=== PATIENT | male | born 1980 | race Two or more races ===

== ENCOUNTER 2018-04-05 18:45 | Emergency (ER) | payer MEDICARE, OTHER ==
[~2018-04-05] VITALS: Ht 177.8 cm; Wt 95.3 kg
--- NOTE | 2018-04-05 18:55 | Emergency Room Report ---
History of Present Illness General Chief Complaint: Behavioral Complaint Source: Patient (Shantel Graves DO) Present Illness HPI Patient persist by paramedics Patient reports that he has been diagnosed with paranoid schizophrenia Has not been on any medications for that over the past month Denies any chest pain denies any shortness of breath Patient denies any active homicidal or suicidal thoughts Denies any vomiting or diarrhea patient reports that he was in a retirement house recently Denies any previous homicidal or suicidal attempts (Shantel Graves DO) Allergies: Coded Allergies: No Known Allergies (Unverified , 04/05/18) Patient History Past Medical History: see triage record Pertinent Family History: none Reviewed Nursing Documentation: PMH: Agreed; PSxH: Agreed (Shantel Graves DO) Nursing Documentation-PMH Past Medical History: No History, Except For History Of Psychiatric Problem: Yes - paranoid schizophrenia (Shantel Graves DO) Review of Systems All Other Systems: negative except mentioned in HPI (Shantel Graves DO) Physical Exam Vital Signs Date Time Temp Pulse Resp B/P (MAP) Pulse Ox O2 Delivery O2 Flow Rate FiO2 04/05/18 18:41 98.5 94 16 150/90 97 Room Air 98.4 Sp02 EP Interpretation: reviewed, normal General Appearance: well appearing, no apparent distress, other - Patient does have some pressured speech and appears anxious Head: normocephalic, atraumatic Eyes: bilateral eye PERRL, bilateral eye EOMI ENT: hearing grossly normal, normal pharynx, TMs + canals normal, uvula midline Neck: full range of motion, supple, no meningismus, no bony tend Respiratory: lungs clear, normal breath sounds, no rhonchi, no respiratory distress, no retraction, no accessory muscle use Cardiovascular #1: normal peripheral pulses, regular rate, rhythm, no edema, no gallop, no JVD, no murmur Gastrointestinal: normal bowel sounds, non tender, soft, no mass, no organomegaly, non-distended, no guarding, no hernia, no pulsatile mass, no rebound Musculoskeletal: normal inspection Neurologic: oriented x3, responsive, park attendant III-XII nml as tested, motor strength/ tone normal, sensory intact Psychiatric: anxious - Pressured speech, unorganized thought process at times Skin: warm/dry, palpation normal, other - Mildly disheveled Lymphatic: normal inspection, no adenopathy (Shantel Graves DO) Medical Decision Making Diagnostic Impression: Primary Impression: Amphetamine abuse ER Course Patient has examinations initiated for further medical clearance Does appear to have underlying psychiatric condition However appears to be appropriately functional, patient was provided with medication Having further medical clearance and reevaluation in the emergency room Patient does not meet active 5150 criteria however will benefit from evaluation if needed Labs Test 04/05/18 18:56 White Blood Count 9.9 K/UL (4.8-10.8) Red Blood Count 4.77 M/UL (4.70-6.10) Hemoglobin 15.5 G/DL (14.2-18.0) Hematocrit 44.1 % (42.0-52.0) Mean Corpuscular Volume 92 FL (80-99) Mean Corpuscular Hemoglobin 32.5 PG (27.0-31.0) Mean Corpuscular Hemoglobin Concent 35.2 G/DL (32.0-36.0) Red Cell Distribution Width 10.8 % (11.6-14.8) Platelet Count 302 K/UL (150-450) Mean Platelet Volume 6.9 FL (6.5-10.1) Neutrophils (%) (Auto) 56.0 % (45.0-75.0) Lymphocytes (%) (Auto) 32.2 % (20.0-45.0) Monocytes (%) (Auto) 8.9 % (1.0-10.0) Eosinophils (%) (Auto) 1.4 % (0.0-3.0) Basophils (%) (Auto) 1.4 % (0.0-2.0) Sodium Level 138 MMOL/L (136-145) Potassium Level 3.8 MMOL/L (3.5-5.1) Chloride Level 104 MMOL/L (98-107) Carbon Dioxide Level 26 MMOL/L (21-32) Anion Gap 8 mmol/L (5-15) Blood Urea Nitrogen 17 mg/dL (7-18) Creatinine 1.0 MG/DL (0.55-1.30) Estimat Glomerular Filtration Rate > 60 mL/min (>60) Glucose Level 112 MG/DL (74-106) Calcium Level 9.0 MG/DL (8.5-10.1) Total Bilirubin 0.4 MG/DL (0.2-1.0) Aspartate Amino Transf (AST/SGOT) 31 U/L (15-37) Alanine Aminotransferase (ALT/SGPT) 41 U/L (12-78) Alkaline Phosphatase 88 U/L (46-116) Total Protein 7.8 G/DL (6.4-8.2) Albumin 3.5 G/DL (3.4-5.0) Globulin 4.3 g/dL Albumin/Globulin Ratio 0.8 (1.0-2.7) Salicylates Level 1.9 ug/mL (2.8-20) Urine Opiates Screen Negative (NEGATIVE) Acetaminophen Level < 2 MCG/ML (10-30) Urine Barbiturates Screen Negative (NEGATIVE) Phencyclidine (PCP) Screen Negative (NEGATIVE) Urine Amphetamines Screen Positive (NEGATIVE) Urine Benzodiazepines Screen Negative (NEGATIVE) Urine Cocaine Screen Negative (NEGATIVE) Urine Marijuana (THC) Screen Negative (NEGATIVE) Serum Alcohol < 3 mg/dL (Shantel Graves DO) ER Course Was turned over to me by Dr. Mendiola. Please see Dr. Graves's note for full history and physical. This patient presented with bizarre behaviors. The patient stated to me that he would like to leave it. He was coming back from a smoke break in the parking lot and stated that he felt fine and requested to leave. He states he is going to go to his mom's house. He does not want any further psychiatric evaluation at this time. He states that he has been using drugs about why he was acting bizarrely. He denies suicidal or homicidal ideation. He was educated on the dangers of amphetamine abuse. The patient was clinically sober and able to make his own decisions at this time. The patient was given return precautions and follow-up instructions. Laboratory Tests Test 04/05/18 18:56 White Blood Count 9.9 K/UL (4.8-10.8) Red Blood Count 4.77 M/UL (4.70-6.10) Hemoglobin 15.5 G/DL (14.2-18.0) Hematocrit 44.1 % (42.0-52.0) Mean Corpuscular Volume 92 FL (80-99) Mean Corpuscular Hemoglobin 32.5 PG (27.0-31.0) H Mean Corpuscular Hemoglobin Concent 35.2 G/DL (32.0-36.0) Red Cell Distribution Width 10.8 % (11.6-14.8) L Platelet Count 302 K/UL (150-450) Mean Platelet Volume 6.9 FL (6.5-10.1) Neutrophils (%) (Auto) 56.0 % (45.0-75.0) Lymphocytes (%) (Auto) 32.2 % (20.0-45.0) Monocytes (%) (Auto) 8.9 % (1.0-10.0) Eosinophils (%) (Auto) 1.4 % (0.0-3.0) Basophils (%) (Auto) 1.4 % (0.0-2.0) Sodium Level 138 MMOL/L (136-145) Potassium Level 3.8 MMOL/L (3.5-5.1) Chloride Level 104 MMOL/L (98-107) Carbon Dioxide Level 26 MMOL/L (21-32) Anion Gap 8 mmol/L (5-15) Blood Urea Nitrogen 17 mg/dL (7-18) Creatinine 1.0 MG/DL (0.55-1.30) Estimate Glomerular Filtration Rate > 60 mL/min (>60) Glucose Level 112 MG/DL (74-106) H Calcium Level 9.0 MG/DL (8.5-10.1) Total Bilirubin 0.4 MG/DL (0.2-1.0) Aspartate Amino Transferase (AST) 31 U/L (15-37) Alanine Aminotransferase (ALT) 41 U/L (12-78) Alkaline Phosphatase 88 U/L (46-116) Total Protein 7.8 G/DL (6.4-8.2) Albumin 3.5 G/DL (3.4-5.0) Globulin 4.3 g/dL Albumin/Globulin Ratio 0.8 (1.0-2.7) L Salicylates Level 1.9 ug/mL (2.8-20) L Urine Opiates Screen Negative (NEGATIVE) Acetaminophen Level < 2 MCG/ML (10-30) L Urine Barbiturates Screen Negative (NEGATIVE) Phencyclidine (PCP) Screen Negative (NEGATIVE) Urine Amphetamines Screen Positive (NEGATIVE) H Urine Benzodiazepines Screen Negative (NEGATIVE) Urine Cocaine Screen Negative (NEGATIVE) Urine Marijuana (THC) Screen Negative (NEGATIVE) Serum Alcohol < 3 mg/dL (Keya Mcdowell DO) Last Vital Signs Date Time Temp Pulse Resp B/P (MAP) Pulse Ox O2 Delivery O2 Flow Rate FiO2 04/05/18 18:41 98.5 94 16 150/90 97 Room Air 98.4 (Shantel Graves DO) Disposition: HOME, SELF-CARE Condition: Stable Signed Out To: Oncoming physician (Shantel Graves DO) Shantel Graves DO Apr 05, 2018 18:55 Keya Mcdowell DO Apr 06, 2018 08:07
[2018-04-05 19:00] VITALS: BP 128/73
[2018-04-05] MEDS ORDERED: Haloperidol 5mg/ml Inj IM ONE (19:00)
[2018-04-05] MEDS ORDERED: LORazepam 1mg tab ORAL ONE (19:00)
[2018-04-05 19:05] LABS: BASOPHILS % (AUTO) 1.4 % (0.0-2.0); EOSINOPHILS % (AUTO) 1.4 % (0.0-3.0); HEMATOCRIT 44.1 % (42.0-52.0); HEMOGLOBIN 15.5 G/DL (14.2-18.0); LYMPHOCYTES % (AUTO) 32.2 % (20.0-45.0); MEAN CORPUSCULAR VOLUME 92 FL (80-99); MONOCYTES % (AUTO) 8.9 % (1.0-10.0); PLATELET COUNT 302 K/UL (150-450); RED BLOOD COUNT 4.77 M/UL (4.70-6.10); RED CELL DISTRIBUTION WIDTH 10.8 % (11.6-14.8); WHITE BLOOD COUNT 9.9 K/UL (4.8-10.8)
[2018-04-05 19:21] VITALS: BP 130/80
[2018-04-05 19:21] LABS: ANION GAP 8 mmol/L (5-15); BLOOD UREA NITROGEN 17 mg/dL (7-18); CARBON DIOXIDE 26 MMOL/L (21-32); CHLORIDE 104 MMOL/L (98-107); POTASSIUM 3.8 MMOL/L (3.5-5.1); SODIUM 138 MMOL/L (136-145)
[2018-04-05 19:28] LABS: ALANINE AMINOTRANSFERASE 41 U/L (12-78); ALBUMIN 3.5 G/DL (3.4-5.0); ALBUMIN/GLOBULIN RATIO 0.8 (1.0-2.7); ALKALINE PHOSPHATASE 88 U/L (46-116); ASPARTATE AMINO TRANSFERASE 31 U/L (15-37); BILIRUBIN,TOTAL 0.4 MG/DL (0.2-1.0)
[2018-04-05 21:20] VITALS: BP 122/77
[2018-04-05 23:20] VITALS: BP 119/62
[2018-04-06 01:20] VITALS: BP 130/76
[2018-04-06 02:20] VITALS: BP 113/62
[2018-04-06 05:02] VITALS: BP 130/70
[2018-04-06 07:31] VITALS: BP 130/70
== END 2018-04-06 07:31 | disposition home or self-care (01) ==
LOC: EDBD 18:45 → EMR 19:17
DX: F15.10 Other stimulant abuse, uncomplicated (principal); F20.0 Paranoid schizophrenia; Z91.14 Patient's other noncompliance with medication regimen
CPT/HCPCS: 36415; 80053; 80307; 85025; 96372; 99284; G0480; J1630; 80329